=== PATIENT | female | born 1955 | race Caucasian/White ===

== ENCOUNTER 2023-11-06 20:09 | Emergency (ER) | payer MEDICARE ==
[2023-11-06] VITALS (12 sets, daily range): BP systolic 98–141; BP diastolic 58–79
[~2023-11-06] VITALS: Ht 165.1 cm; Wt 78.0 kg
[~2023-11-06 20:09] MED LIST: ADVAIR DISK1 INH; ALLEGRA60 MG PO; BUDEPRION150 MG PO; CRESTOR40 MG PO; CYCLOBENZAPR5 MG PO; PROTONIX40 M2 PO; SINGULAIR10 MG PO; SYNTHROID112 MCG PO
[2023-11-06] MEDS ORDERED: SODIUM CHLORIDE 0.9% 1,000 ML BAG IV ONE (20:15)
[2023-11-06] MEDS ORDERED: Levofloxacin 750 mg Premix 150 ML IV STA (20:15)
[2023-11-06] MEDS ORDERED: ACETAMINOPHEN 500 MG TAB PO ONE (20:55)
[2023-11-06 21:31] LABS: EOS% 0.3 % (0-8); HEMATOCRIT 23.8 % (37.0-47.0); HEMOGLOBIN 7.6 g/dl (12.0-16.0); LYMPH% 3.4 % (15-41); MEAN CELL VOLUME 101.3 fL CALC (80.0-100.0); MEAN CORPUSCULAR HGB 32.3 pG CALC (26.0-32.0); MEAN CORPUSCULAR HGB CONC 31.9 g/dL CAL (32.0-36.0); MONO% 1.9 % (2-13); NEUT# 8.46 thou/uL (2.00-7.15); NEUT% 93.4 % (42-76); RED BLOOD COUNT 2.35 mill/uL (4.20-5.60); RED CELL DISTRI WIDTH 18.6 % (11.5-15.5)
[2023-11-06 21:58] LABS: ACT PARTIAL THROMBO TIME 33.4 SECONDS (20.0-32.5); INTERNATIONAL NORMALIZED RATIO 1.2 RATIO (0.7-1.3)
[2023-11-06 21:59] LABS: ALBUMIN 3.5 g/dL (3.2-5.0); ALKALINE PHOSPHATASE 103 u/l (38-126); ANION GAP 9 (6-22 (CALC)); BILIRUBIN, TOTAL 0.8 mg/dL (0.02-1.3); BUN 14 mg/dL (8-23); BUN/CREATININE RATIO 14 (12-20 (CALC)); CARBON DIOXIDE 26 mmol/l (22-30); CHLORIDE 98 mmol/l (95-108); ESTIMATED GFR 62 ML/MIN (>=90 (CALC)); POTASSIUM 4.5 mmol/l (3.5-5.1); SGOT/AST 36 u/l (9-36); SODIUM 129 mmol/l (137-146); TOTAL PROTEIN 7.1 g/dL (6.3-8.2)
[2023-11-06 23:54] LABS: URINE BILIRUBIN - DIPSTICK Negative (NEGATIVE); URINE BLOOD DIPSTICK Negative (NEGATIVE); URINE GLUCOSE - DIPSTICK Negative (NEGATIVE); URINE KETONE Negative (NEGATIVE); URINE LEUK ESTERASE Negative (NEGATIVE); URINE NITRITE - DIPSTICK Negative (Negative); URINE PH 5.5 (4.5-8.0); URINE PROTEIN - DIPSTICK Trace mg/dL (NEG-TRACE); URINE SPECIFIC GRAVITY 1.015; URINE UROBILINOGEN - DIPSTICK 0.2 E.U./dL (0.2)
[2023-11-06 23:56] LABS: URINE COLOR Yellow
[2023-11-07] VITALS: BP 96/61
[2023-11-07 00:15] VITALS: BP 105/65
[2023-11-07 00:30] VITALS: BP 100/64
[2023-11-07 00:48] VITALS: BP 100/64
== END 2023-11-07 03:41 | disposition home or self-care (01) ==
LOC: ED 20:09
PROVIDERS: Family Medicine
DX: B34.9 Viral infection, unspecified (principal); L25.9 Unspecified contact dermatitis, unspecified cause; C56.9 Malignant neoplasm of unspecified ovary; J45.909 Unspecified asthma, uncomplicated; I25.2 Old myocardial infarction; E06.3 Autoimmune thyroiditis; E78.00 Pure hypercholesterolemia, unspecified; Z90.710 Acquired absence of both cervix and uterus; Z20.822 Contact with and (suspected) exposure to COVID-19